=== PATIENT | female | born 1950 | race Caucasian/White ===

== ENCOUNTER → 2017-01-18 | Outpatient (CLI) | payer BC ==
[~2017-01-18] MED LIST: ESTER C1 TA1 PO; LORTAB 5/500 501 TAB PO; MAGNESIUM200 MG PO; MIDRIN 325 MG-11 CAP PO; MIGRAINE MEDICATION; PROBIOTIC FORMU1 CAP PO; VAGIFEM10 MCG VG; VITAMIN B COMPL1 T16 PO; VITAMIN D 1001000 IU PO; [UNRECOGNIZED DRUG - OTHER] PO
== END ==
LOC: MC.RAD 11:20
DX: Z12.31 Encounter for screening mammogram for malignant neoplasm of breast (principal)

== ENCOUNTER 2017-12-30 11:47 | Emergency (ER) | payer BC ==
[~2017-12-30] VITALS: Ht 154.9 cm; Wt 50.0 kg
[2017-12-30 12:01] VITALS: BP 122/58; TEMP 97.6
[2017-12-30] MEDS ORDERED: MAXALT5 MG PO (12:05)
[2017-12-30] MEDS ORDERED: PERCOCET 325 MG1 TA2 PO (14:38)
[2017-12-30 15:00] VITALS: PULSE 64
== END 2017-12-30 15:00 | disposition home or self-care (01) ==
LOC: COL.ER 11:47
DX: S42.292A Other displaced fracture of upper end of left humerus, initial encounter for closed fracture (principal); W19.XXXA Unspecified fall, initial encounter
CPT/HCPCS: J2270; J2405; J7030

== ENCOUNTER → 2018-01-02 | Outpatient (REF) ==
[~2018-01-02] MED LIST changes: +MAXALT5 MG PO; +PERCOCET 325 MG1 TA2 PO
[2018-01-02 10:09] LABS: BASO % 0.4 % (0.0-2.0); EOS % 0.3 % (0-4.0); GRAN # 5.1 (1.4-6.5); GRAN % 66.6 % (42.2-75.2); HEMOGLOBIN 13.3 g/dl (12.5-16.0); LYMPH # 1.7 (1.2-3.4); LYMPH % 22.5 % (20.0-51.0); MEAN CELL VOLUME 98 fl (80.0-100.0); MEAN CORPUSCULAR HEMOGLOBIN 33 pg (27.0-31.0); MEAN CORPUSCULAR HGB CONC 33 g/dl (33.0-37.0); MEAN PLATELET VOLUME 13.5 fl (7.4-10.4); MONO # 0.8 (0.1-0.6); MONO % 9.9 % (1.7-9.3); PLATELET COUNT 185 K/mm3 (130-400); RED BLOOD COUNT 4.08 M/mm3 (4.10-5.30); REDCELL DISTRIBUTION WIDTH-CV 13.2 % (11.5-14.5)
[2018-01-02 10:18] LABS: CALCIUM 9.4 mg/dL (8.4-10.2); CREATININE, serum 0.66 mg/dL (0.52-1.25); POTASSIUM 3.9 mmol/L (3.4-5.0)
== END ==
LOC: ZMSC 09:59
PROVIDERS: Orthopaedic Surgery
DX: Z01.89 Encounter for other specified special examinations (principal)

== ENCOUNTER → 2018-01-24 | Outpatient (CLI) | payer BC | LOC: COL.RAD 14:07 | DX: M79.662 Pain in left lower leg (principal) ==

== ENCOUNTER → 2018-04-19 | Outpatient (CLI) | payer OTHER | LOC: COL.LAB 10:35 | DX: Z47.1 Aftercare following joint replacement surgery (principal); M25.512 Pain in left shoulder; Z96.612 Presence of left artificial shoulder joint ==

== ENCOUNTER 2018-11-01 11:03 | Outpatient (CLI) | payer BC ==
[~2018-11-01] VITALS: Ht 154.9 cm; Wt 49.6 kg
[2018-11-01] MEDS ORDERED: [UNRECOGNIZED DRUG - OTHER] PO (11:21)
[2018-11-01] MEDS ORDERED: D MANNOSE PO (11:22)
[2018-11-01] MEDS ORDERED: [UNRECOGNIZED DRUG - OTHER] (11:22)
[2018-11-01 11:40] VITALS: BP 117/57; PULSE 56; TEMP 97.8
== END 2018-11-01 13:45 | disposition home or self-care (01) ==
LOC: EUO 11:03
DX: M81.0 Age-related osteoporosis without current pathological fracture (principal)
CPT/HCPCS: J3489

== ENCOUNTER → 2018-11-26 | Outpatient (CLI) | payer BC ==
[~2018-11-26] MED LIST changes: +D MANNOSE PO; +[UNRECOGNIZED DRUG - OTHER]; +[UNRECOGNIZED DRUG - OTHER] PO
== END ==
LOC: MC.RAD 13:40
DX: Z12.31 Encounter for screening mammogram for malignant neoplasm of breast (principal)

== ENCOUNTER 2020-07-03 15:44 | Outpatient (CLI) | payer BC ==
[~2020-07-03] VITALS: Ht 154.9 cm; Wt 50.5 kg
[~2020-07-03 15:44] MED LIST changes: +MASON NATURAL2000 IU PO; -VITAMIN D 1001000 IU PO
[2020-07-03 16:38] VITALS: BP 118/75; PULSE 89; TEMP 98.5
== END 2020-07-03 18:41 | disposition home or self-care (01) ==
LOC: EUO 15:44
DX: Z01.89 Encounter for other specified special examinations (principal)
CPT/HCPCS: J3489

== ENCOUNTER 2020-10-06 09:18 | Emergency (ER) | payer BC ==
[~2020-10-06] VITALS: Ht 154.9 cm; Wt 49.1 kg
[2020-10-06 10:50] VITALS: BP 147/75; PULSE 64; TEMP 98.1
[2020-10-08] MEDS ORDERED: NORCO 325 MG-51 TAB PO ×2 (16:29)
== END 2020-10-06 10:57 | disposition home or self-care (01) ==
LOC: COL.ER 09:18
DX: S01.01XA Laceration without foreign body of scalp, initial encounter (principal); Z88.2 Allergy status to sulfonamides; Z88.1 Allergy status to other antibiotic agents; W01.10XA Fall on same level from slipping, tripping and stumbling with subsequent striking against unspecified object, initial encounter

== ENCOUNTER → 2020-10-16 | Outpatient (CLI) | payer BC ==
[~2020-10-16] MED LIST changes: +NORCO 325 MG-51 TAB PO
[2020-10-16 15:35] VITALS: BP 127/60; PULSE 88; TEMP 98.6
== END ==
LOC: COL.ER 15:15
DX: Z48.02 Encounter for removal of sutures (principal)

== ENCOUNTER → 2021-08-30 | Outpatient (CLI) | payer BC | LOC: COL.RAD 07:48 | DX: G43.109 Migraine with aura, not intractable, without status migrainosus (principal); G51.32 Clonic hemifacial spasm, left; E53.9 Vitamin B deficiency, unspecified; R41.89 Other symptoms and signs involving cognitive functions and awareness; R90.89 Other abnormal findings on diagnostic imaging of central nervous system ==

== ENCOUNTER → 2021-10-07 | Outpatient (CLI) | payer BC | LOC: MC.RAD 08-13 14:30 | DX: Z12.31 Encounter for screening mammogram for malignant neoplasm of breast (principal) ==